=== PATIENT | female | born 1990 | race Caucasian/White ===

== ENCOUNTER 2019-10-14 19:47 | Emergency (ER) | payer OTHER ==
[~2019-10-14] VITALS: Ht 162.6 cm; Wt 112.0 kg
[2019-10-14] MEDS ORDERED: DIALYVITE 800-1 EACH (19:54)
== END 2019-10-14 22:32 | disposition home or self-care (01) ==
LOC: ER 19:47 → EDBD 19:47 → ER 20:04
DX: O20.0 Threatened abortion (principal)

== ENCOUNTER 2020-05-14 01:04 | Outpatient (CLI) | payer OTHER ==
[~2020-05-14 01:04] MED LIST: DIALYVITE 800-1 EACH
[2020-05-14] MEDS ORDERED: ADULT LOW DOSE81 M1 PO (01:51)
== END 2020-05-14 13:02 | disposition home or self-care (01) ==
LOC: OBS/DEL 01:04
PROVIDERS: ATTEND Obstetrics & Gynecology
DX: O76 Abnormality in fetal heart rate and rhythm complicating labor and delivery (principal); O26.893 Other specified pregnancy related conditions, third trimester; R51 Headache

== ENCOUNTER 2020-05-21 09:36 | Inpatient (IN) | payer OTHER ==
[~2020-05-21] VITALS: Ht 160 cm; Wt 3.6 kg
[~2020-05-21 09:36] MED LIST changes: +ADULT LOW DOSE81 M1 PO
== END 2020-05-24 14:50 | DRG 788 ==
LOC: LDR 09:36 → O/R 16:11 → OB/GYN 17:28
PROVIDERS: ADMIT Obstetrics & Gynecology; ATTEND Obstetrics & Gynecology
PROC: 4A1HXCZ Monitoring of Products of Conception, Cardiac Rate, External Approach (ICD-10-PCS; 2020-05-21)
PROC: 10D00Z1 Extraction of Products of Conception, Low, Open Approach (ICD-10-PCS; principal; 2020-05-21 16:45)
DX: O82 Encounter for cesarean delivery without indication (principal); Z20.828 Contact with and (suspected) exposure to other viral communicable diseases; Z37.0 Single live birth; Z3A.39 39 weeks gestation of pregnancy

== ENCOUNTER 2023-01-08 21:13 | Emergency (ER) | payer OTHER ==
[~2023-01-08] VITALS: Ht 160 cm; Wt 120.7 kg
== END 2023-01-09 02:52 | disposition home or self-care (01) ==
LOC: ER 21:13
DX: R10.31 Right lower quadrant pain (principal); R31.9 Hematuria, unspecified; E86.0 Dehydration

== ENCOUNTER 2023-01-11 00:48 | Emergency (ER) | payer OTHER ==
[~2023-01-11] VITALS: Ht 160 cm; Wt 120.2 kg
== END 2023-01-11 02:50 | disposition home or self-care (01) ==
LOC: ER 00:48
DX: R51.9 Headache, unspecified (principal)

== ENCOUNTER 2024-03-22 07:00 | Inpatient (IN) | payer OTHER ==
[~2024-03-22] VITALS: Ht 160 cm; Wt 3.6 kg
[2024-03-22 11:32] LABS: PH,URINE 6.5 (5.0-8.0); URINE APPEARANCE Cloudy; URINE BILIRRUBIN Negative (NEGATIVE); URINE BLOOD Negative; URINE COLOR Dark Yellow; URINE GLUCOSE Negative (NEGATIVE); URINE KETONE Negative (NEGATIVE); URINE LEUKOCYTE Small; URINE NITRATE Negative
[2024-03-22 11:35] LABS: URINE BACTERIA 3338.7 uL (0.0-1933); URINE EPITHELIAL CELLS 103.5 uL (0.0-38.8); URINE RBC 10.6 uL (0.0-20.8); URINE WBC 207.3 uL (0.0-23.2)
[2024-03-22 11:42] LABS: HEMATOCRIT 33.5 % (36.0-45.00); HEMOGLOBIN 10.7 g/dL (12.0-15.00); MEAN CELL VOLUME 73.8 fL (80.00-100.00); MEAN CORPUSCULAR HEMOGLOBIN 23.6 pg (27.00-32.0); PLATELET COUNT 243 K/uL (150-450); RED BLOOD COUNT 4.55 M/uL (4.00-6.00); RED CELL DISTRIBUTION WIDTH 17.1 % (11.5-14.5)
[2024-03-22 12:16] LABS: INR < 0.93; PARTIAL THROMBOPLASTIN TIME 24.4 SECONDS (22.0-34.0); PROTHROMBIN TIME 10.1 SECONDS (9.0-11.5)
[2024-03-22 12:37] LABS: URINE CAST 1.22 uL (0.0-1.40); URINE PROTEIN 100 (NEGATIVE)
[2024-03-28] MEDS ORDERED: URSODIOL PO (12:39)
[2024-03-28] MEDS ORDERED: PRENATAL + DHA1 EAC1 PO (12:41)
[2024-03-28 12:43] VITALS: BP 123/79
[2024-03-28] MEDS ORDERED: ERYTHROMYCIN BASE 1 GM TUBE OP ONE (13:19)
[2024-03-28] MEDS ORDERED: OXYTOCIN 10 UNITS/ML VIAL ONE ×2 (13:19→19:41)
[2024-03-28] MEDS ORDERED: CEFAZOLIN SODIUM 1,000 MG VIAL ONE (13:34)
[2024-03-28] MEDS ORDERED: MORPHINE SULFATE 4 MG/ML VIAL IV ONE ×2 (18:15→18:45)
[2024-03-28] MEDS ORDERED: RINGERS SOLUTION,LACTATED 1,000 ML IV SCH (19:15)
[2024-03-28] MEDS ORDERED: PROMETHAZINE HCL 25 MG/ML AMPUL IM PRN (19:15)
[2024-03-28] MEDS ORDERED: OXYTOCIN 1,000 ML IV SCH (19:15)
[2024-03-28] MEDS ORDERED: ERYTHROMYCIN BASE 1 GM TUBE OP SCH (19:15)
[2024-03-28] MEDS ORDERED: CHLORHEXIDINE GLUCONATE 120 ML BOTTLE TOP SCH (19:15)
[2024-03-28] MEDS ORDERED: MEPERIDINE HCL/PF 50 MG/ML VIAL IM PRN (19:15)
[2024-03-28] MEDS ORDERED: PROMETHAZINE HCL 25 MG/ML AMPUL ONE (19:41)
[2024-03-28 21:37] LABS: HEMATOCRIT 33.6 % (36.0-45.00); HEMOGLOBIN 10.6 g/dL (12.0-15.00); MEAN CELL VOLUME 73.2 fL (80.00-100.00); MEAN CORPUSCULAR HEMOGLOBIN 23.2 pg (27.00-32.0); MEAN CORPUSCULAR HGB CONC 31.7 g/dl (32.0-36.0); PLATELET COUNT 230 K/uL (150-450); RED BLOOD COUNT 4.59 M/uL (4.00-6.00); RED CELL DISTRIBUTION WIDTH 17.9 % (11.5-14.5)
[2024-03-28 22:19] VITALS: BP 145/82
[2024-03-29] VITALS: BP 133/80
[2024-03-29 08:00] VITALS: BP 118/78
[2024-03-29] MEDS ORDERED: OxyCODONE HCL/APAP UD (PERCOCET) PO PRN (09:00)
[2024-03-29 15:38] VITALS: BP 111/76
[2024-03-30 01:23] VITALS: BP 101/69
[2024-03-30 09:33] VITALS: BP 117/72
[2024-03-30 16:09] VITALS: BP 115/82
[2024-03-31 01:28] VITALS: BP 115/74
[2024-03-31 09:00] VITALS: BP 97/66
== END 2024-03-31 13:42 | disposition home or self-care (01) | DRG 785 ==
LOC: OB/GYN 03-28 07:00 → O/R 03-28 12:13 → OB/GYN 03-28 12:13
PROVIDERS: ADMIT Obstetrics & Gynecology; ATTEND Obstetrics & Gynecology
PROC: 0UB70ZZ Excision of Bilateral Fallopian Tubes, Open Approach (ICD-10-PCS; 2024-03-28)
PROC: 4A1HXCZ Monitoring of Products of Conception, Cardiac Rate, External Approach (ICD-10-PCS; 2024-03-28)
PROC: 10D00Z1 Extraction of Products of Conception, Low, Open Approach (ICD-10-PCS; principal; 2024-03-28 08:45)
DX: O34.211 Maternal care for low transverse scar from previous cesarean delivery (principal); Z30.2 Encounter for sterilization; Z3A.39 39 weeks gestation of pregnancy; Z37.0 Single live birth; Z20.822 Contact with and (suspected) exposure to COVID-19